=== PATIENT | female | born 1995 ===

== ENCOUNTER 2018-01-27 23:10 | Emergency (ER) | payer OTHER, SELFPAY ==
[2018-01-27 23:55] VITALS: BP 118/65; PULSE 99; RESP 18; TEMP 37; O2SAT 100
--- NOTE | 2018-01-28 | ED.GENADUL_ITS ---
Disposition Clinical Impression: Skin irritation, Aura Disposition: HOME Condition: Good Additional Instructions: Do not wear the insect repellent bracelets anymore. Continue your medications as previously prescribed. You may use Benadryl if needed for itching. Follow- up with primary care when you return home. Return to ED for difficulty breathing, throat swelling, prolonged seizure activity, other concerns. Referrals: Primary Care Provider [Outside] Medical Decision Making - Medical Decision Making Patient feels better here. There is no rash or evidence of allergic type reaction. It is noted that she took Benadryl prior to coming in. She had an aura but no seizure. She is on Keppra. She is baseline neurologically. At this point in time no indication for laboratory studies or imaging. She appears to be stable with no evidence of true allergic reaction. She reports feeling much better. She is safe for discharge to continue her current medical regimen and may use Benadryl in the future for itching. History of Present Illness - General Chief complaint: GenMedical Stated complaint: NAUSEOUS, ALLERGY Time Seen by Provider: 01/28/18 00:00 Source: patient Mode of arrival: ambulatory Limitations: no limitations - History of Present Illness Initial comments: Patient here tonight after having a possible reaction to insect repellent wrist band. She states after wearing this for a little while she began to feel itchy all over and noticed some irritation to the skin. She also developed an aura for her seizures though did not actually have a seizure. She does did not feel right. She is camping with friends but not family. She continued to feel weird. She is brought in for evaluation. - Related Data DiphenhydrAMINE [Benadryl] 25 mg PO PRN PRN 01/28/18 Levetiracetam [Keppra] 3,500 mg PO DAILY 01/28/18 Allergies Allergy/AdvReac Type Severity Reaction Status Date / Time oxcarbazepine AdvReac Unverified 01/28/18 00:01 [From Trileptal] Review of Systems Constitutional: denies: chills, fever Eyes: denies: eye discharge, vision change ENT: denies: throat pain, congestion Respiratory: denies: shortness of breath, wheezing Cardiovascular: denies: chest pain Gastrointestinal: denies: abdominal pain, nausea, vomiting Musculoskeletal: denies: arthralgia, myalgia Skin: pruritus. denies: rash Neurological: other (aura). denies: headache, weakness, numbness Past Medical History - Past Medical History Medical history: seizures CP Surgical history: non-contributory - Social History Smoking status: never smoker General Exam - General Limitations: no limitations General appearance: alert, in no apparent distress - Head Head exam: Present: atraumatic, normocephalic - Respiratory Respiratory exam: Present: normal lung sounds bilaterally. Absent: respiratory distress, wheezes - Cardiovascular Cardiovascular Exam: Present: regular rate, normal rhythm, normal heart sounds - Extremities Exam Extremities exam: Absent: pedal edema - Neurological Exam Neurological exam: Present: alert, oriented X3, CN II-XII intact, motor sensory deficit (Some baseline deficits related to her CP involving right side.) - Skin Skin exam: Absent: rash, erythema Course Vital Signs - 24 hr 01/27/18 23:55 Temperature 98.6 F Pulse 99 H Respiratory 18 Rate Blood Pressure 118/65 Pulse Oximetry 100
[2018-01-28 00:08] VITALS: RESP 16
== END 2018-01-28 00:35 | disposition home or self-care (01) ==
PROVIDERS: Emergency Provider Emergency Medicine
DX: L24.5 Irritant contact dermatitis due to other chemical products (principal); G40.909 Epilepsy, unspecified, not intractable, without status epilepticus
CPT/HCPCS: 99282